=== PATIENT | female | born 1995 ===

== ENCOUNTER 2020-03-06 08:31 | Inpatient (IN) | payer OTHER ==
[2020-03-06] MEDS ORDERED: TERBUTALINE 1 MG/1 ML INJ IVP PRN (09:32)
[2020-03-06] MEDS ORDERED: ePHEDrine SULFATE 50 MG/1 ML INJ IV PRN (09:32)
[2020-03-06] MEDS ORDERED: NalbUPHINE 10 MG/1 ML INJ IV PRN (09:32)
[2020-03-06] MEDS ORDERED: MINERAL OIL 30 ML ORAL LIQD PO PRN (09:32)
[2020-03-06] MEDS ORDERED: BUTORPHANOL 2 MG/1 ML INJ IV PRN (09:32)
[2020-03-06] MEDS ORDERED: TERBUTALINE 1 MG/1 ML INJ SUB-Q PRN (09:32)
[2020-03-06] MEDS ORDERED: LIDOCAINE (2%) 20 MG/1 ML VIAL 20 ML MDV INFILTRATI ONE (09:32)
[2020-03-06] MEDS ORDERED: fentaNYL 100 MCG/2 ML INJ IV PRN (09:32)
[2020-03-06] MEDS ORDERED: ONDANSETRON 4 MG/2 ML INJ IV PRN ×2 (09:32→20:23)
[2020-03-06 09:44] LABS: Hematocrit 36.1 % (30.3-42.9); Hemoglobin 12.7 gm/dl (10.1-14.3); Mean Corpuscular HGB Conc 35 % (30-34); Mean Corpuscular Volume 93 fl (79-97); Platelet Count 139 K/mm3 (140-440); Red Blood Count 3.88 M/mm3 (3.65-5.03); Red Cell Distribution Width 12.8 % (13.2-15.2)
[2020-03-06] MEDS ORDERED: OXYTOCIN 20 UNIT/1000ML DRIP 20 UNITS/1,000 ML BAG IV SCH (10:00)
[2020-03-06] MEDS ORDERED: OXYTOCIN DRIP 30 UNITS/500 ML BAG IV SCH ×2 (10:00→16:00)
[2020-03-06] MEDS ORDERED: LACTATED RINGERS 1,000 ML IV SCH (10:00)
[2020-03-06] MEDS ORDERED: miSOPROStol 25 MCG TAB VG PRN (10:08)
--- NOTE | 2020-03-06 10:15 | History and Physical Report ---
History of Present Illness Date of examination: 03/06/20 Date of admission: 03/06/20 08:32 Chief complaint: Presents for a scheduled induction of labor due to IUGR History of present illness: Early entry to care at [facility], course complicated by IUGR, co-managed with [facility]. Past History Past Medical History: no pertinent history Past Surgical History: no surgical history Family/Genetic History: none Social history: no significant social history - Obstetrical History Expected Date of Delivery: 03/16/20 Actual Gestation: 38 Week(s) 4 Day(s) : 2 Para: 1 Hx # Term Pregnancies: 1 Number of Living Children: 1 Medications and Allergies Allergies Allergy/AdvReac Type Severity Reaction Status Date / Time No Known Allergies Allergy Unverified 02/26/20 02:28 Home Medications Medication Instructions Recorded Confirmed Last Taken Type Vitamin 1 tab PO DAILY 02/26/20 02/26/20 02/25/20 10:00 History Active Meds: Active Medications Butorphanol Tartrate (Stadol) 2 mg IV Q2H PRN PRN Reason: Pain , Severe (7-10) Ephedrine Sulfate (Ephedrine Sulfate) 10 mg IV Q2M PRN PRN Reason: Hypotension Fentanyl (Sublimaze) 100 mcg IV Q2H PRN PRN Reason: Pain,Severe (7-10) LABOR PAIN Oxytocin/Sodium Chloride (Pitocin/Ns 20 Unit/1000ml Drip) 20 units in 1,000 mls @ 125 mls/hr IV DIRECT GRISELDA Oxytocin/Sodium Chloride (Pitocin/Ns 30 Unit/500ml) 30 units in 500 mls @ 1 mls/hr IV TITR GRISELDA; Protocol Lactated Ringer's (Lactated Ringers) 1,000 mls @ 125 mls/hr IV DIRECT GRISELDA Mineral Oil (Mineral Oil) 30 ml PO QHS PRN PRN Reason: Constipation Misoprostol (Cytotec) 25 mcg VG Q4H PRN PRN Reason: induction Nalbuphine HCl (Nalbuphine) 10 mg IV Q2H PRN PRN Reason: Pain, Moderate (4-6) Ondansetron HCl (Zofran) 4 mg IV Q8H PRN PRN Reason: Nausea And Vomiting Terbutaline Sulfate (Brethine) 0.25 mg SUB-Q ONCE PRN PRN Reason: Hyperstimulation/Hypertonicity Terbutaline Sulfate (Brethine) 0.25 mg IVP ONCE PRN PRN Reason: Hyperstimulation/Hypertonicity Review of Systems All systems: negative - Vital Signs Vital signs: Vital Signs Pulse BP 102 H 107/69 03/06/20 08:59 03/06/20 08:59 Temp Pulse Resp BP Pulse Ox 98.2 F 100 H 126/74 97 03/06/20 09:09 03/06/20 10:09 03/06/20 09:59 03/06/20 10:09 - Physical Exam Breasts: Positive: normal Cardiovascular: Regular rate Lungs: Positive: Clear to auscultation, Normal air movement Abdomen: Positive: normal appearance, soft, normal bowel sounds Genitourinary (Female): Positive: normal external genitalia, normal perenium Vagina: Positive: normal moisture Uterus: Positive: enlarged Anus/Rectum: Positive: normal perianal skin Extremities: Positive: normal - Obstetrical FHR: category 1 Uterine Contraction Monitor Mode: External Cervical Dilatation: 1 Cervical Effacement Percentage: 20 station: -4 Uterine Contraction Pattern: Irregular Uterine Tone Measurement Phase: Resting Uterine Contraction Intensity: Mild Results Result Diagrams: 03/06/20 09:30 Abnormal lab results 03/06/20 Range/Units 09:30 MCH 33 H (28-32) pg MCHC 35 H (30-34) % RDW 12.8 L (13.2-15.2) % Plt Count 139 L (140-440) K/mm3 All other labs normal. Assessment and Plan A: IUP @ 38 4/7 Weeks Category I Tracing IUGR GBS Negative P: Admit to L&D Per Routine Orders Cytotec Induction
--- NOTE | 2020-03-06 16:12 | Progress Note ---
Assessment and Plan A: IUP @ 38 4/7 Weeks Category I Tracing IUGR GBS Negative P: AROM Continue Pitocin Induction Subjective - Subjective Date of service: 03/06/20 Interval history: Early entry to care at [facility], course complicated by IUGR, co-managed with [facility]. Patient reports: movement normal, contractions Objective - Vital Signs Vital Signs: Vital Signs - 12hr 03/06/20 03/06/20 03/06/20 08:59 09:00 09:05 Temperature Pulse Rate 102 H 105 H 100 H Blood Pressure 107/69 O2 Sat by Pulse 98 98 Oximetry 03/06/20 03/06/20 03/06/20 09:09 09:10 09:15 Temperature 98.2 F Pulse Rate 92 H 89 Blood Pressure O2 Sat by Pulse 97 96 Oximetry 03/06/20 03/06/20 03/06/20 09:20 09:25 09:30 Temperature Pulse Rate 97 H 95 H 86 Blood Pressure 116/62 O2 Sat by Pulse 98 98 97 Oximetry 03/06/20 03/06/20 03/06/20 09:35 09:40 09:45 Temperature Pulse Rate 101 H 91 H 103 H Blood Pressure O2 Sat by Pulse 97 97 97 Oximetry 03/06/20 03/06/20 03/06/20 09:50 09:59 10:04 Temperature Pulse Rate 109 H 98 H 108 H Blood Pressure 126/74 O2 Sat by Pulse 97 98 97 Oximetry 03/06/20 03/06/20 03/06/20 10:09 10:14 10:19 Temperature Pulse Rate 100 H 85 105 H Blood Pressure O2 Sat by Pulse 97 97 96 Oximetry 03/06/20 03/06/20 03/06/20 10:24 10:29 10:34 Temperature Pulse Rate 84 96 H 92 H Blood Pressure 114/68 O2 Sat by Pulse 98 97 97 Oximetry 03/06/20 03/06/20 03/06/20 10:39 10:44 10:49 Temperature Pulse Rate 83 88 81 Blood Pressure O2 Sat by Pulse 96 97 96 Oximetry 03/06/20 03/06/20 03/06/20 10:54 10:59 11:04 Temperature Pulse Rate 92 H 79 83 Blood Pressure O2 Sat by Pulse 97 97 97 Oximetry 03/06/20 03/06/20 03/06/20 11:09 11:14 11:19 Temperature Pulse Rate 91 H 82 90 Blood Pressure O2 Sat by Pulse 97 97 96 Oximetry 03/06/20 03/06/20 03/06/20 11:24 11:29 11:34 Temperature Pulse Rate 83 84 73 Blood Pressure 104/53 O2 Sat by Pulse 96 97 97 Oximetry 03/06/20 03/06/20 03/06/20 11:39 11:44 11:49 Temperature Pulse Rate 73 90 84 Blood Pressure O2 Sat by Pulse 96 96 97 Oximetry 03/06/20 03/06/20 03/06/20 11:54 11:59 12:02 Temperature Pulse Rate 74 86 70 Blood Pressure 97/51 O2 Sat by Pulse 95 97 Oximetry 03/06/20 03/06/20 03/06/20 12:04 12:12 12:17 Temperature Pulse Rate 71 74 86 Blood Pressure O2 Sat by Pulse 96 98 97 Oximetry 03/06/20 03/06/20 03/06/20 12:22 12:27 12:30 Temperature Pulse Rate 72 77 73 Blood Pressure 105/58 O2 Sat by Pulse 97 96 Oximetry 03/06/20 03/06/20 03/06/20 12:32 12:37 12:42 Temperature Pulse Rate 71 93 H 99 H Blood Pressure O2 Sat by Pulse 97 97 97 Oximetry 03/06/20 03/06/20 03/06/20 12:47 12:52 12:57 Temperature Pulse Rate 89 88 78 Blood Pressure O2 Sat by Pulse 97 97 96 Oximetry 03/06/20 03/06/20 03/06/20 13:00 13:02 13:07 Temperature Pulse Rate 70 82 82 Blood Pressure 95/54 O2 Sat by Pulse 93 96 97 Oximetry 03/06/20 03/06/20 03/06/20 13:12 13:17 13:22 Temperature Pulse Rate 94 H 79 74 Blood Pressure O2 Sat by Pulse 97 97 96 Oximetry 03/06/20 03/06/20 03/06/20 13:27 13:29 13:32 Temperature Pulse Rate 73 82 87 Blood Pressure 104/61 O2 Sat by Pulse 97 96 Oximetry 03/06/20 03/06/20 03/06/20 13:37 13:42 13:47 Temperature Pulse Rate 84 87 71 Blood Pressure O2 Sat by Pulse 96 97 96 Oximetry 03/06/20 03/06/20 03/06/20 13:52 13:57 13:59 Temperature Pulse Rate 74 72 70 Blood Pressure 107/60 O2 Sat by Pulse 96 96 Oximetry 03/06/20 03/06/20 03/06/20 14:02 14:07 14:12 Temperature Pulse Rate 73 91 H 75 Blood Pressure O2 Sat by Pulse 95 97 95 Oximetry 03/06/20 03/06/20 03/06/20 14:17 14:22 14:27 Temperature Pulse Rate 73 79 80 Blood Pressure O2 Sat by Pulse 96 96 96 Oximetry 03/06/20 03/06/20 03/06/20 14:29 14:32 14:37 Temperature Pulse Rate 89 77 73 Blood Pressure 103/56 O2 Sat by Pulse 95 95 Oximetry 03/06/20 03/06/20 03/06/20 14:42 14:47 14:52 Temperature Pulse Rate 94 H 77 83 Blood Pressure O2 Sat by Pulse 98 97 96 Oximetry 03/06/20 03/06/20 03/06/20 14:57 14:59 15:01 Temperature Pulse Rate 89 82 87 Blood Pressure 113/70 O2 Sat by Pulse 97 93 Oximetry 03/06/20 03/06/20 03/06/20 15:02 15:07 15:12 Temperature Pulse Rate 87 86 87 Blood Pressure O2 Sat by Pulse 97 96 98 Oximetry 03/06/20 03/06/20 03/06/20 15:17 15:22 15:27 Temperature Pulse Rate 101 H 92 H 80 Blood Pressure O2 Sat by Pulse 97 98 96 Oximetry 03/06/20 03/06/20 03/06/20 15:29 15:32 15:37 Temperature Pulse Rate 90 85 89 Blood Pressure 108/67 O2 Sat by Pulse 96 97 Oximetry 03/06/20 03/06/20 03/06/20 15:47 15:52 15:57 Temperature Pulse Rate 79 81 103 H Blood Pressure O2 Sat by Pulse 98 97 97 Oximetry 03/06/20 03/06/20 03/06/20 15:59 16:02 16:07 Temperature Pulse Rate 77 92 H 90 Blood Pressure 118/72 O2 Sat by Pulse 94 97 98 Oximetry - Exam Breasts: normal Cardiovascular: Regular rate Lungs: Clear to auscultation, Normal air movement Abdomen: Present: normal appearance, soft, normal bowel sounds Uterus: Present: normal, firm, fundal height above umbilicus FHR: category 1 Uterine Contraction Monitor Mode: External Cervical Dilatation: 3.5 (Moderate amount of clear fluid upon AROM @ 1607) Cervical Effacement Percentage: 80 station: -2 Uterine Contraction Pattern: Irregular Uterine Tone Measurement Phase: Resting Uterine Contraction Intensity: Mild Extremities: normal - Labs Labs: Abnormal Labs 03/06/20 09:30 MCH 33 H MCHC 35 H RDW 12.8 L Plt Count 139 L Laboratory Results - last 24 hr 03/06/20 03/06/20 09:30 09:30 WBC 7.0 RBC 3.88 Hgb 12.7 Hct 36.1 MCV 93 MCH 33 H MCHC 35 H RDW 12.8 L Plt Count 139 L Blood Type O POSITIVE Antibody Screen Negative
[2020-03-06] MEDS ORDERED: OXYTOCIN 10 UNIT/1 ML INJ ONE (20:08)
[2020-03-06] MEDS ORDERED: PROMETHAZINE 25 MG TAB PO PRN (20:23)
[2020-03-06] MEDS ORDERED: LANOLIN/ZINC/DIMETHICONE (LANSINOH) 7 GM TP PRN (20:23)
[2020-03-06] MEDS ORDERED: diphenhydrAMINE 25 MG CAP PO PRN (20:23)
[2020-03-06] MEDS ORDERED: WITCH HAZEL/ GLYCERIN PAD TP PRN (20:23)
[2020-03-06] MEDS ORDERED: ACETAMINOPHEN 325 MG TAB PO PRN (20:23)
[2020-03-06] MEDS ORDERED: MAGNESIUM HYDROXIDE (MOM) ORAL LIQD UDC PO PRN (20:23)
[2020-03-06] MEDS ORDERED: PROMETHAZINE 25 MG RECT SUPP PR PRN (20:23)
--- NOTE | 2020-03-06 20:39 | Procedure Note ---
OB Delivery Note - Vaginal Delivery presentation: vertex Delivery position: OA Delivery induction: oxytocin (AROM) Delivery monitor: external FHT, external uterine Route of delivery: Delivery placenta: spontaneous Delivery cord: 3 umbilical vessels Episiotomy: none Delivery laceration: none Anesthesia: local Delivery comments: Called to for delivery. SVE 10/100%/+1 and pt was pushing. of a viable live female infant in OA position. Spontaneous delivery of head and shoulders. 8/9. Infant placed on mom's chest/abd for initial bonding. Delayed cord clamping x 90 sec then cord was clamped x2 and cut by FOB. given to awaiting nurse for an asses. Spontaneous delivery of intact placenta with CVX3. FF@ U1 with fundal massage and IM Pitocin. Exploration of tears revealed none. EBL 350cc. Mom and baby stable. - A at 1 minute: 8 at 5 minutes: 9 Infant Gender: Female (wt 2916 gms)
[2020-03-06] MEDS: IBUPROFEN 600 MG TAB PO SCH (23:21)
[2020-03-07 08:16] LABS: Hematocrit 29.5 % (30.3-42.9); Hemoglobin 10.4 gm/dl (10.1-14.3)
[2020-03-07] MEDS: IBUPROFEN 600 MG TAB PO SCH ×2 (10:08→16:40)
[2020-03-07] MEDS: PRENATAL VIT27-FE FUMARATE-FOLIC ACID VIT TAB PO SCH (10:09)
--- NOTE | 2020-03-07 10:38 | Progress Note ---
Assessment and Plan - Patient Problems (1) Status post normal vaginal delivery Current Visit: Yes Status: Acute Plan to address problem: Continue routine PP orders Anticipate d/c home tomorrow F/U at office in 6 wks for routine PP visit (2) Anemia Current Visit: Yes Status: Acute Qualifiers: Anemia type: other cause Other causes of anemia: acute posthemorrhagic Qualified Code(s): D62 - Acute posthemorrhagic anemia Plan to address problem: Asymptomatic Increase iron rich foods into diet Subjective - Subjective Date of service: 03/07/20 Principal diagnosis: S/P ; PPD #1 Interval history: See admission H & P; OB delivery summary and PP progress notes Patient reports: appetite normal, voiding normally, pain well controlled, flatus, ambulating normally : doing well, nursing well Objective - Vital Signs Latest vital signs: Vital Signs Temp Pulse Resp BP BP Pulse Ox 03/07/20 10:08 20 03/07/20 06:11 97.8 F 77 20 121/72 98 03/06/20 22:33 98.2 F 84 18 113/62 93 03/06/20 22:13 85 96 03/06/20 22:08 99 H 97 03/06/20 21:42 103 H 97 03/06/20 21:37 94 H 97 03/06/20 21:36 98.0 F 85 18 123/56 03/06/20 21:32 87 97 03/06/20 21:29 85 123/56 03/06/20 21:27 89 98 03/06/20 21:22 88 98 03/06/20 21:17 82 98 03/06/20 21:12 84 98 03/06/20 21:07 82 98 03/06/20 21:02 98.2 F 93 H 18 118/69 98 03/06/20 20:59 90 118/69 03/06/20 20:57 92 H 97 03/06/20 20:29 88 118/67 03/06/20 20:02 98 H 97 03/06/20 20:00 84 120/57 94 03/06/20 19:57 93 H 97 03/06/20 19:52 88 97 03/06/20 19:47 88 92 03/06/20 19:42 80 94 03/06/20 19:37 28 L 99 08/05/20 19:36 68 85 08/05/20 19:31 88 96 08/05/20 19:29 78 114/66 08/05/20 19:03 83 93 08/05/20 19:02 79 97 08/05/20 18:59 79 116/55 0805/20 18:57 90 97 /05/20 18:52 81 97 08/05/20 18:47 81 95 05/20 18:42 84 97 /05/20 18:37 83 97 05/20 18:36 94 05/20 18:32 105 H 97 05/20 18:30 86 120/77 0805/20 18:28 65 69 L 05 18:27 90 97 05/20 18:22 79 95 05/20 18:17 77 96 05/20 18:15 86 94 05/20 18:12 101 H 97 05/20 18:07 88 98 0520 18:02 96 H 98 0520 18:00 79 117/60 0805/20 17:57 99 H 96 05/20 17:52 91 H 97 05/20 17:47 86 98 05/20 17:42 104 H 96 05/20 17:37 99 H 96 05/20 17:32 88 95 0805/20 17:29 85 117/65 0805/20 17:27 87 97 08/05/20 17:22 85 96 05/20 17:17 91 H 98 05/20 17:12 78 96 05/20 17:07 81 97 0805/20 17:02 85 97 05/20 17:00 77 135/78 08/05/20 16:57 84 96 /05/20 16:52 96 H 97 05/20 16:47 84 97 05/20 16:42 92 H 96 05/20 16:37 84 96 05/20 16:32 87 96 05/20 16:29 91 H 117/68 94 08/05/20 16:27 81 97 08/05/20 16:22 83 97 05/20 16:17 86 97 /05/20 16:12 88 98 08/05/20 16:07 90 98 05 16:02 92 H 97 05 16:00 97.9 F 03/06/20 15:59 77 118/72 94 05/ 15:57 103 H 97 05 15:52 81 97 0520 15:47 79 98 05 15:37 89 97 05/ 15:32 85 96 05/20 15:29 90 108/67 05 15:27 80 96 05 15:22 92 H 98 05 15:17 101 H 97 05 15:12 87 98 05 15:07 86 96 03/06/20 15:02 87 97 05 15:01 87 93 03/06/20 14:59 82 113/70 05 14:57 89 97 05 14:52 83 96 05 14:47 77 97 03/06/20 14:42 94 H 98 05 14:37 73 95 05 14:32 77 95 05 14:29 89 103/56 05 14:27 80 96 05 14:22 79 96 05 14:17 73 96 05 14:12 75 95 05 14:07 91 H 97 05 14:02 73 95 05/20 13:59 70 107/60 08/05/20 13:57 72 96 05 13:52 74 96 05/ 13:47 71 96 05/20 13:42 87 97 05 13:37 84 96 05/20 13:32 87 96 05/20 13:29 82 104/61 0805 13:27 73 97 05 13:22 74 96 05/ 13:17 79 97 05 13:12 94 H 97 05 13:07 82 97 /05/20 13:02 82 96 05/ 13:00 70 95/54 93 05 12:57 78 96 08 12:52 88 97 08/05/20 12:47 89 97 03/06/20 12:42 99 H 97 03/06/20 12:37 93 H 97 03/06/20 12:32 71 97 03/06/20 12:30 73 105/58 03/06/20 12:27 77 96 03/06/20 12:22 72 97 03/06/20 12:17 86 97 03/06/20 12:12 74 98 03/06/20 12:04 71 96 03/06/20 12:02 70 97/51 03/06/20 11:59 86 97 03/06/20 11:54 74 95 03/06/20 11:49 84 97 03/06/20 11:44 90 96 03/06/20 11:39 73 96 03/06/20 11:34 73 97 03/06/20 11:29 84 104/53 97 03/06/20 11:24 83 96 03/06/20 11:19 90 96 03/06/20 11:14 82 97 03/06/20 11:09 91 H 97 03/06/20 11:04 83 97 03/06/20 10:59 79 97 03/06/20 10:54 92 H 97 03/06/20 10:49 81 96 03/06/20 10:44 88 97 03/06/20 10:39 83 96 Intake and Output 03/06/20 03/07/20 03/07/20 23:59 07:59 15:59 Intake Total 360 Output Total 500 Balance -140 Intake: Oral 120 Intake, Free Water 240 Output: Urine 500 Void 500 Other: Total, Intake Amount 120 Total, Output Amount 200 # Voids Void 1 Estimated Blood Loss 350 - Exam Breasts: Present: normal Cardiovascular: Present: Regular rate Lungs: Present: Normal air movement Abdomen: Present: soft Uterus: Present: firm, fundal height below umbilicus (U-2) Extremities: Present: normal Deep Tendon Reflex Grade: Normal +2 - Labs Labs: Abnormal lab results 03/07/20 Range/Units 07:23 Hct 29.5 L D (30.3-42.9) %
--- NOTE | 2020-03-07 10:40 | Discharge Summary ---
Providers - Providers Date of Admission: 03/06/20 08:32 Date of discharge: 03/08/20 (0900) Attending physician: RAMIRO CARRION MD Primary care physician: RAMIRO CARRION MD Hospitalization Reason for admission: induction of labor (secondary to IUGR) Delivery: Episiotomy: none Laceration: none Other procedures: none complications: none Discharge diagnosis: IUP at term delivered, other (anemia) [place] baby: female Hospital course: See admission H & P; OB delivery summary and PP progress notes Condition at discharge: Stable Disposition: DC-01 TO HOME OR SELFCARE - Discharge Diagnoses (1) Status post normal vaginal delivery Status: Acute (2) Anemia Status: Acute Qualifiers: Anemia type: other cause Other causes of anemia: acute posthemorrhagic Qualified Code(s): D62 - Acute posthemorrhagic anemia Plan - Provider Discharge Summary Activity: routine, no sex for 6 weeks, no heavy lifting 4 weeks, no strenuous exercise Diet: other (Iron rich diet) Instructions: routine Additional instructions: [] Smoking cessation referral if applicable(refer to patient education folder for contact #) [] Refer to [facility]'s [facility] Booklet Call your doctor immediately for: * Fever > 100.5 * Heavy vaginal bleeding ( >1 pad per hour) * Severe persistent headache * Shortness of breath * Reddened, hot, painful area to leg or breast * Drainage or odor from incision. * Keep incision clean and dry at all times and follow doctor's instructions regarding bathing/showering - Follow up plan Follow up: RAMIRO CARRION MD [Primary Care Provider] - 6 Weeks
[2020-03-08] MEDS: IBUPROFEN 600 MG TAB PO SCH ×2 (04:31→09:35)
[2020-03-08] MEDS: PRENATAL VIT27-FE FUMARATE-FOLIC ACID VIT TAB PO SCH (09:35)
[2020-03-08 14:12] VITALS: BP 107/59
== END 2020-03-08 14:20 | disposition home or self-care (01) | DRG 806 ==
LOC: TRG 08:31 → LD 08:32 → OB 22:24
PROVIDERS: ADMIT Obstetrics & Gynecology; ATTEND Obstetrics & Gynecology
PROC: 10E0XZZ Delivery of Products of Conception, External Approach (ICD-10-PCS; principal; 2020-03-06)
PROC: 10907ZC Drainage of Amniotic Fluid, Therapeutic from Products of Conception, Via Natural or Artificial Opening (ICD-10-PCS; 2020-03-06)
PROC: 3E033VJ Introduction of Other Hormone into Peripheral Vein, Percutaneous Approach (ICD-10-PCS; 2020-03-06)
DX: O36.5930 Maternal care for other known or suspected poor fetal growth, third trimester, not applicable or unspecified (principal); D62 Acute posthemorrhagic anemia; Z37.0 Single live birth; Z3A.38 38 weeks gestation of pregnancy; O99.02 Anemia complicating childbirth
CPT/HCPCS: 36415; 85014; 85018; 85027; 86850; 86900; 86901; G0378; J2590; J3010; J7120

== ENCOUNTER 2021-12-08 08:39 | Inpatient (IN) | payer SELFPAY ==
[2021-12-08] MEDS ORDERED: LIDOCAINE (2%) 20 MG/1 ML VIAL 20 ML MDV INFILTRATI NR (09:23)
--- NOTE | 2021-12-08 09:44 | History and Physical Report ---
History of Present Illness Date of examination: 12/08/21 Date of admission: 12/08/21 Chief complaint: Scheduled induction for post dates and SGA History of present illness: at 40.1wk by LMP c/w US. care at [facility]. Pt admits to movement, pt admits to feeling ctx, denies LOF and vag bleed. with O positive, neg screen, RPR non-reactive, HIV neg, HepBsAg neg, and rubella immune and GBS negative. Pt decline epidural Past History Past Medical History: no pertinent history Past Surgical History: no surgical history Social history: no significant social history - Obstetrical History Expected Date of Delivery: 12/07/21 Actual Gestation: 40 Week(s) 1 Day(s) : 2 Hx # Term Pregnancies: 1 Number of Living Children: 1 Medications and Allergies Allergies Allergy/AdvReac Type Severity Reaction Status Date / Time No Known Allergies Allergy Unverified 02/26/20 02:28 Home Medications Medication Instructions Recorded Confirmed Last Taken Type Vitamin 1 tab PO DAILY 02/26/20 03/06/20 03/05/20 09:00 History 1 Active Meds: Active Medications Acetaminophen (Acetaminophen 325 Mg Tab) 650 mg PO Q4H PRN PRN Reason: Pain, Mild (1-3) Carboprost Tromethamine (Carboprost Tromethamine 250 Mcg/1 Ml Inj) 250 mcg IM ONCE PRN PRN Reason: Uterine Bleeding Ephedrine Sulfate (Ephedrine Sulfate 50 Mg/1 Ml Inj) 10 mg IV Q2M PRN PRN Reason: Hypotension Fentanyl (Fentanyl 100 Mcg/2 Ml Inj) 100 mcg IV Q2H PRN PRN Reason: Pain,Severe (7-10) LABOR PAIN Oxytocin/Sodium Chloride (Pitocin/Ns 30 Unit/500ml) 30 units in 500 mls @ 2 mls/hr IV TITR GRISELDA; Protocol Lactated Ringer's (Lactated Ringers) 1,000 mls @ 125 mls/hr IV DIRECT GRISELDA Oxytocin/Sodium Chloride (Pitocin/Ns 30 Unit/500ml) 30 units in 500 mls @ 40 mls/hr IV TITR GRISELDA; Protocol Lidocaine (Lidocaine (2%) 20 Mg/1 Ml Vial 20 Ml Mdv) 20 ml INFILTRATI ONCE ONE Stop: 12/08/21 09:24 Loperamide HCl (Loperamide 2 Mg Cap) 2 mg PO ONCE PRN PRN Reason: give with Hemabate Methylergonovine Maleate (Methylergonovine Maleate 0.2 Mg/Ml Vial) 0.2 mg IM ONCE PRN PRN Reason: Uterine Bleeding Mineral Oil (Mineral Oil 30 Ml Oral Liqd) 30 ml PO QHS PRN PRN Reason: Constipation Misoprostol (Misoprostol 200 Mcg Tab) 800 mcg AK ONCE PRN PRN Reason: Uterine Bleeding Nalbuphine HCl (Nalbuphine 10 Mg/1 Ml Inj) 10 mg IV Q2H PRN PRN Reason: Pain, Moderate (4-6) Naloxone HCl (Naloxone 0.4 Mg/1 Ml Inj) 0.1 mg IV Q2MIN PRN PRN Reason: Res Rate </= 8 or 02 SAT < 92% Ondansetron HCl (Ondansetron 4 Mg/2 Ml Inj) 4 mg IV Q8H PRN PRN Reason: Nausea And Vomiting Oxytocin (Oxytocin 10 Unit/1 Ml Inj) 10 unit IM ONCE PRN PRN Reason: Uterine Bleeding Promethazine HCl (Promethazine 25 Mg Tab) 25 mg PO Q6H PRN PRN Reason: Nausea And Vomiting Terbutaline Sulfate (Terbutaline 1 Mg/1 Ml Inj) 0.25 mg SUB-Q ONCE PRN PRN Reason: Hyperstimulation/Hypertonicity Review of Systems All systems: negative (no complaints) - Vital Signs Vital signs: Vital Signs Pulse BP 77 119/64 12/08/21 09:18 12/08/21 09:18 Temp Pulse Resp BP Pulse Ox 78 119/64 97 12/08/21 09:39 12/08/21 09:18 12/08/21 09:39 - Physical Exam Breasts: Positive: deferred Cardiovascular: Regular rate Genitourinary (Female): Positive: normal external genitalia Vagina: Positive: normal moisture Uterus: Positive: enlarged (non-tender, gravid) - Obstetrical FHR: category 1 Uterine Contraction Monitor Mode: External Cervical Dilatation: 4.5 Cervical Effacement Percentage: 50 station: -2 Uterine Contraction Pattern: Irregular Uterine Contraction Intensity: Mild Results All other labs normal. Assessment and Plan Post dates IUP at 40.1wks in latent labor, GBS negative. 1. Admit to labor and delivery 2. Augment labor with pitocin 3. may have IV pain med and if pt changes her mind, epidural 4. plan of care discussed in [place], Expect BENIGNO
[2021-12-08] MEDS ORDERED: NalbUPHINE 10 MG/1 ML INJ IV PRN (10:00)
[2021-12-08] MEDS ORDERED: LACTATED RINGERS 1,000 ML IV SCH (10:00)
[2021-12-08] MEDS ORDERED: TERBUTALINE 1 MG/1 ML INJ SUB-Q PRN (10:00)
[2021-12-08] MEDS ORDERED: ACETAMINOPHEN 325 MG TAB PO PRN (10:00)
[2021-12-08] MEDS ORDERED: fentaNYL 100 MCG/2 ML INJ IV PRN (10:00)
[2021-12-08] MEDS ORDERED: ePHEDrine SULFATE 50 MG/1 ML INJ IV PRN (10:00)
[2021-12-08] MEDS ORDERED: CARBOPROST TROMETHAMINE 250 MCG/1 ML INJ IM PRN (10:00)
[2021-12-08] MEDS ORDERED: miSOPROStol 200 MCG TAB PR PRN (10:00)
[2021-12-08] MEDS ORDERED: METHYLERGONOVINE MALEATE 0.2 MG/ML VIAL IM PRN (10:00)
[2021-12-08] MEDS ORDERED: LOPERAMIDE 2 MG CAP PO PRN (10:00)
[2021-12-08] MEDS ORDERED: ONDANSETRON 4 MG/2 ML INJ IV PRN ×2 (10:00→17:16)
[2021-12-08] MEDS ORDERED: PROMETHAZINE 25 MG TAB PO PRN ×2 (10:00→17:16)
[2021-12-08] MEDS ORDERED: NALOXONE 0.4 MG/1 ML INJ IV PRN (10:00)
[2021-12-08] MEDS ORDERED: OXYTOCIN DRIP 30 UNITS/500 ML BAG IV SCH (10:00)
[2021-12-08] MEDS ORDERED: OXYTOCIN 10 UNIT/1 ML INJ IM PRN (10:00)
[2021-12-08] MEDS: OXYTOCIN DRIP 30 UNITS/500 ML BAG IV SCH ×4 (10:32→13:42)
--- NOTE | 2021-12-08 15:35 | Procedure Note ---
OB Delivery Note - Delivery Date of Delivery: 12/08/21 Surgeon: TAVARES PATRICIO Estimated blood loss: other (400cc) - Vaginal Delivery presentation: vertex Delivery position: OP Intrapartum events: other(please specify) (SGA) Delivery induction: oxytocin Delivery augmentation: rupture of membranes Delivery monitor: external FHT, external uterine Route of delivery: Delivery placenta: spontaneous Delivery cord: nuchal cord (x1) Episiotomy: none Delivery laceration: none Anesthesia: none Delivery comments: pt screaming and rushing upwards in the bed and baby . Uncontrolled delivery with pt just closing legs and then stopped pushing. Tight Nuchal cord x1 reduced on the perineum and pt given the best form of Ashley position with her moving upwards in bed and my attempt to deliver posterior arm successful after nurse did suprapubic pressure. Meconium large amount noted after baby delivered. NICU team present and code pink called. Vigorous back rub by me with cry response from baby until the team arrived and the nurse was setting up the oxygen. Umbilical artery gas collected and NICU team said blood gas has to be taken to lab and nurse took same to lab and order placed by me for same. Umbilical artery gas pH 7.27 BE -3.8; APGARS from NICU team 3/6/8 at 10mins. Umbilical cord blood also drawn. Spontaneous delivery of intact placenta with 3vessel cord. Pt sustained no lacerations. Bimanual exam with cervix intact. Mom stable and NICU team still taking care of baby. Placenta sent to pathology - Infant A at 1 minute: 3 at 5 minutes: 6 Infant Gender: Male (wt 3240g; APGARS 3/6/8 at 10min and Umb artery pH 7.27 adn BE -3.8)
[2021-12-08] MEDS ORDERED: oxyCODONE /ACETAMINOPHEN 5-325MG TAB PO PRN (17:16)
[2021-12-08] MEDS ORDERED: MAGNESIUM HYDROXIDE (MOM) ORAL LIQD UDC PO PRN (17:16)
[2021-12-08] MEDS ORDERED: WITCH HAZEL/ GLYCERIN PAD TP PRN (17:16)
[2021-12-08] MEDS ORDERED: BENZOCAINE/MENTHOL 20/0.5% TOP SPRAY 56 GM TP PRN (17:16)
[2021-12-08] MEDS ORDERED: PROMETHAZINE 25 MG RECT SUPP PR PRN (17:16)
[2021-12-08] MEDS ORDERED: diphenhydrAMINE 25 MG CAP PO PRN (17:16)
[2021-12-08] MEDS ORDERED: LANOLIN/ZINC/DIMETHICONE (LANSINOH) 7 GM TP PRN (17:16)
[2021-12-08] MEDS: IBUPROFEN 600 MG TAB PO SCH (18:09)
[2021-12-08] MEDS: DOCUSATE SODIUM 100 MG CAP PO SCH (21:56)
[2021-12-08] MEDS ORDERED: MINERAL OIL 30 ML ORAL LIQD PO PRN (22:00)
[2021-12-09] MEDS: IBUPROFEN 600 MG TAB PO SCH ×4 (00:41→17:00)
[2021-12-09 05:48] LABS: Basophils % (Auto) 0.3 % (0.0-1.8); Eosinophils # (Auto) 0.1 K/mm3 (0.0-0.4); Eosinophils % (Auto) 1.1 % (0.0-4.3); Hematocrit 36.3 % (30.3-42.9); Hemoglobin 12.1 gm/dl (10.1-14.3); Lymphocytes # (Auto) 1.6 K/mm3 (1.2-5.4); Lymphocytes % (Auto) 20.1 % (13.4-35.0); Mean Corpuscular HGB Conc 33 % (30-34); Mean Corpuscular Volume 87 fl (79-97); Monocytes # (Auto) 0.5 K/mm3 (0.0-0.8); Monocytes % (Auto) 6.7 % (0.0-7.3); Platelet Count 133 K/mm3 (140-440); Red Blood Count 4.15 M/mm3 (3.65-5.03)
[2021-12-09 06:05] LABS: Alanine Aminotransferase 13 units/L (7-56); Albumin 3.2 g/dL (3.9-5); Blood Urea Nitrogen 5 mg/dL (7-17); Calcium 8.1 mg/dL (8.4-10.2); Hemolysis Index 2
[2021-12-09 06:09] LABS: BUN/Creatinine Ratio 13
[2021-12-09] MEDS: DOCUSATE SODIUM 100 MG CAP PO SCH (09:53)
[2021-12-09] MEDS: PRENATAL VIT27-FE FUMARATE-FOLIC ACID VIT TAB PO SCH (09:53)
--- NOTE | 2021-12-09 15:45 | Progress Note ---
Assessment and Plan PPD#1 with hgb drawn post delivery and same wnl 1. Routine care 2. Pt offered but declines discharge home today Subjective Date of service: 12/09/21 Principal diagnosis: PPD#1 Interval history: pt has no complaints. pt wants to remain in hospital today. pt is breast feeding and bottle. denies pelvic pain. Vag bleed less than a period Objective - Constitutional Vitals: Vital Signs - 12hr 12/09/21 12/09/21 12/09/21 05:01 07:55 08:30 Temperature 97.5 F L 97.8 F Pulse Rate 68 66 Respiratory 18 20 Rate Blood Pressure 114/73 117/77 O2 Sat by Pulse 99 94 Oximetry O2 Sat by Pulse 94 Oximetry [ Bilateral] 12/09/21 12/09/21 09:55 11:56 Temperature 98.7 F Pulse Rate 77 75 Respiratory 16 Rate Blood Pressure 108/68 O2 Sat by Pulse 95 94 Oximetry O2 Sat by Pulse Oximetry [ Bilateral] General appearance: Present: no acute distress - Neck Neck: normal ROM - Respiratory Respiratory effort: normal - Breasts Breasts: deferred - Cardiovascular Rhythm: regular Extremities: No edema - Gastrointestinal General gastrointestinal: Present: soft, non-tender - Genitourinary Female genitourinary: other (Fundus firm, non-tender, 1cm below the umbilicus) - Labs CBC & Chem 7: 12/09/21 05:11 12/09/21 05:11 Labs: Abnormal lab results 12/09/21 12/09/21 Range/Units 05:11 05:11 Plt Count 133 L (140-440) K/mm3 Seg Neutrophils % 71.8 H (40.0-70.0) % Sodium 135 L (137-145) mmol/L Carbon Dioxide 21 L (22-30) mmol/L BUN 5 L (7-17) mg/dL Creatinine 0.4 L (0.6-1.2) mg/dL Calcium 8.1 L (8.4-10.2) mg/dL Total Protein 5.8 L (6.3-8.2) g/dL Albumin 3.2 L (3.9-5) g/dL Medications & Allergies - Medications Allergies/Adverse Reactions: Allergies No Known Allergies Allergy (Unverified 02/26/20 02:28) Home Medications: Home Medications Medication Instructions Recorded Confirmed Last Taken Type Vitamin 1 tab PO DAILY 02/26/20 03/06/20 03/05/20 09:00 History 1 Active Medications: Generic Name Dose Route Start Last Admin Trade Name Freq PRN Reason Stop Dose Admin Acetaminophen 650 mg 12/08/21 10:00 Acetaminophen 325 Mg Tab PO Q4H PRN Pain, Mild (1-3) Benzocaine/Menthol 1 spray 12/08/21 17:16 Benzocaine/Menthol 20/0.5% [place] 56 Gm TP PRN PRN Episiotomy Pain Bisacodyl 10 mg 12/08/21 17:16 Bisacodyl 10 Mg Rect Supp MN BID PRN Constipation Carboprost Tromethamine 250 mcg 12/08/21 10:00 Carboprost Tromethamine 250 Mcg/1 Ml Inj IM ONCE PRN Uterine Bleeding Diphenhydramine HCl 25 mg 12/08/21 17:16 Diphenhydramine 25 Mg Cap PO Q6H PRN Itching Docusate Sodium 100 mg 12/08/21 22:00 12/09/21 09:53 Docusate Sodium 100 Mg Cap PO 100 mg BID GRISELDA Administration Oxytocin/Sodium Chloride 30 units in 500 mls @ 2 mls/hr 12/08/21 10:00 12/08/21 13:42 Pitocin/Ns 30 Unit/500ml IV 8 ml/hr TITR GRISELDA 8 mls/hr Administration Protocol Lactated Ringer's 1,000 mls @ 125 mls/hr 12/08/21 10:00 12/08/21 10:15 Lactated Ringers IV 125 mls/hr DIRECT GRISELDA Administration Oxytocin/Sodium Chloride 30 units in 500 mls @ 40 mls/hr 12/08/21 10:00 Pitocin/Ns 30 Unit/500ml IV TITR GRISELDA Protocol Ibuprofen 600 mg 12/08/21 17:16 12/09/21 06:12 Ibuprofen 600 Mg Tab PO 600 mg Q6H GRISELDA Administration Loperamide HCl 2 mg 12/08/21 10:00 Loperamide 2 Mg Cap PO ONCE PRN give with Hemabate Magnesium Hydroxide 30 ml 12/08/21 17:16 Magnesium Hydroxide (Mom) Oral Liqd Udc PO HS PRN Constipation Methylergonovine Maleate 0.2 mg 12/08/21 10:00 Methylergonovine Maleate 0.2 Mg/Ml Vial IM ONCE PRN Uterine Bleeding Mineral Oil 30 ml 12/08/21 22:00 Mineral Oil 30 Ml Oral Liqd PO QHS PRN Constipation Multi-Ingredient Ointment 1 applic 12/08/21 17:16 12/09/21 09:53 Lanolin/Zinc/Dimethicone (Lans[place]oh) 7 Gm TP 1 applic PRN PRN Administration Sore Nipples Multivitamins/Iron/Calcium 1 each 12/09/21 10:00 12/09/21 09:53 Qeu20-Qc Fumarate-Folic Acid Vit Tab PO 1 each QDAY GRISELDA Administration Ondansetron HCl 4 mg 12/08/21 10:00 Ondansetron 4 Mg/2 Ml Inj IV Q8H PRN Nausea And Vomiting Oxycodone/Acetaminophen 2 tab 12/08/21 17:16 Oxycodone /Acetaminophen 5-325mg Tab PO Q6H PRN Pain, Moderate (4-6) Oxytocin 10 unit 12/08/21 10:00 Oxytocin 10 Unit/1 Ml Inj IM ONCE PRN Uterine Bleeding Promethazine HCl 25 mg 12/08/21 10:00 Promethazine 25 Mg Tab PO Q6H PRN Nausea And Vomiting Promethazine HCl 25 mg 12/08/21 17:16 Promethazine 25 Mg Rect Supp MN Q6H PRN Nausea And Vomiting Promethazine HCl 25 mg 12/08/21 17:16 Promethazine 25 Mg Tab PO Q6H PRN Nausea And Vomiting Sodium Chloride 10 ml 12/08/21 17:16 Sodium Chloride 0.9% 10 Ml Flush Syringe IV 12/18/21 23:59 PRN NR Witch Lena/Glycerin 1 each 12/08/21 17:16 Witch Lena/ Glycerin Pad TP PRN PRN Hemorrhoid/cleansing/soothing
[2021-12-10 08:37] VITALS: BP 119/80
[2021-12-10] MEDS: DOCUSATE SODIUM 100 MG CAP PO SCH (10:16)
[2021-12-10] MEDS: PRENATAL VIT27-FE FUMARATE-FOLIC ACID VIT TAB PO SCH (10:16)
--- NOTE | 2021-12-10 11:38 | Progress Note ---
Assessment and Plan A: PP Day #2 Stable P: Follow Routine Orders D/c Home today RTO in 6 Weeks Subjective - Subjective Date of service: 12/10/21 Principal diagnosis: PPD#1 Patient reports: appetite normal, voiding normally, pain well controlled, flatus, bowel movement, ambulating normally [place]: doing well, bottle feeding (and ) Objective - Vital Signs Latest vital signs: Vital Signs Temp Pulse Resp BP Pulse Ox Pulse Ox 12/10/21 08:15 96 12/10/21 07:49 97.8 F 86 18 119/80 96 12/10/21 01:13 98.5 F 68 20 120/77 96 12/09/21 19:30 98 12/09/21 15:57 98.5 F 80 20 121/78 96 12/09/21 11:56 98.7 F 75 16 108/68 94 Intake and Output 12/09/21 12/10/21 12/10/21 22:59 06:59 14:59 Intake Total 120 360 240 Balance 120 360 240 Intake: Oral 120 240 Intake, Free Water 360 Other: Total, Intake Amount 120 240 Voiding Method Toilet # Voids Void 1 1 1 - Exam Breasts: Present: normal Cardiovascular: Present: Regular rate Lungs: Present: Clear to auscultation, Normal air movement Abdomen: Present: normal appearance, soft, normal bowel sounds Uterus: Present: normal, firm, fundal height below umbilicus Extremities: Present: normal
--- NOTE | 2021-12-10 11:39 | Discharge Summary ---
Providers - Providers Date of Admission: 12/08/21 08:40 Date of discharge: 12/10/21 Attending physician: TAVARES PATRICIO Primary care physician: TAVARES PATRICIO Hospitalization Reason for admission: active labor Delivery: Episiotomy: none Laceration: none Other procedures: none complications: none Discharge diagnosis: IUP at term delivered Cora baby: male Condition at discharge: Good Disposition: 01 HOME / SELF CARE / HOMELESS Plan - Provider Discharge Summary Activity: routine, no sex for 6 weeks, no heavy lifting 4 weeks, no strenuous exercise Diet: routine Instructions: routine Additional instructions: [] Smoking cessation referral if applicable(refer to patient education folder for contact #) [] Refer to [facility] [employer] Booklet Call your doctor immediately for: * Fever > 100.5 * Heavy vaginal bleeding ( >1 pad per hour) * Severe persistent headache * Shortness of breath * Reddened, hot, painful area to leg or breast * Drainage or odor from incision. * Keep incision clean and dry at all times and follow doctor's instructions regarding bathing/showering - Follow up plan Follow up: TAVARES PATRICIO MD [Primary Care Provider] - 6 Weeks
== END 2021-12-10 13:10 | disposition home or self-care (01) | DRG 807 ==
LOC: TRG 08:39 → LD 08:40 → TRG 09:44 → OB 16:55
PROVIDERS: ADMIT Obstetrics & Gynecology; ATTEND Obstetrics & Gynecology
PROC: 10E0XZZ Delivery of Products of Conception, External Approach (ICD-10-PCS; principal; 2021-12-08)
PROC: 10907ZC Drainage of Amniotic Fluid, Therapeutic from Products of Conception, Via Natural or Artificial Opening (ICD-10-PCS; 2021-12-08)
DX: O69.81X0 Labor and delivery complicated by cord around neck, without compression, not applicable or unspecified (principal); Z37.0 Single live birth; Z3A.40 40 weeks gestation of pregnancy; Z20.822 Contact with and (suspected) exposure to COVID-19
CPT/HCPCS: 36415; 80053; 85025; 86850; 86900; 86901; 88307; 96360; 99211; G0378; G0463; J0690; J2590; J7120; U0003